=== PATIENT | male | born 1970 | race Two or more races ===

== ENCOUNTER 2017-08-02 09:24 | Inpatient (IN) | payer BC ==
[~2017-08-02] VITALS: Ht 167.6 cm; Wt 106.6 kg
[2017-08-02] VITALS (13 sets, daily range): BP systolic 119–148; BP diastolic 63–74
[2017-08-02] MEDS ORDERED: NKM (09:41)
[2017-08-02] MEDS ORDERED: Ketorolac 30mg Inj IV ONE (10:30)
[2017-08-02 10:46] LABS: BASOPHILS % (AUTO) 0.5 % (0.0-2.0); EOSINOPHILS % (AUTO) 0.1 % (0.0-3.0); HEMATOCRIT 43.2 % (42.0-52.0); HEMOGLOBIN 15.1 G/DL (14.2-18.0); LYMPHOCYTES % (AUTO) 14.2 % (20.0-45.0); MEAN CORPUSCULAR VOLUME 82 FL (80-99); MONOCYTES % (AUTO) 7.5 % (1.0-10.0); NEUTROPHILS % (AUTO) 77.8 % (45.0-75.0); PLATELET COUNT 203 K/UL (150-450); RED BLOOD COUNT 5.24 M/UL (4.70-6.10); RED CELL DISTRIBUTION WIDTH 11.3 % (11.6-14.8); WHITE BLOOD COUNT 14.3 K/UL (4.8-10.8)
[2017-08-02 10:59] LABS: APPEARANCE,URINE CLEAR; BILIRUBIN, URINE NEGATIVE (NEGATIVE); GLUCOSE, URINE (UA) NEGATIVE (NEGATIVE); KETONES,URINE NEGATIVE (NEGATIVE); LEUKOCYTE ESTERASE ,URINE 1+ (NEGATIVE); NITRITE,URINE NEGATIVE (NEGATIVE); PH,URINE 6 (4.5-8.0); PROTEIN,URINE 2+ (NEGATIVE); UROBILINOGEN,URINE NORMAL MG/DL (0.0-1.0)
[2017-08-02 11:05] LABS: ANION GAP 6 mmol/L (5-15); BLOOD UREA NITROGEN 15 mg/dL (7-18); CALCIUM 9.3 MG/DL (8.5-10.1); CARBON DIOXIDE 30 MMOL/L (21-32); CHLORIDE 103 MMOL/L (98-107); POTASSIUM 3.5 MMOL/L (3.5-5.1); SODIUM 139 MMOL/L (136-145)
[2017-08-02 11:07] LABS: COLOR,URINE YELLOW
[2017-08-02 11:08] LABS: ALANINE AMINOTRANSFERASE 30 U/L (12-78); ALBUMIN 4.1 G/DL (3.4-5.0); ALBUMIN/GLOBULIN RATIO 1.1 (1.0-2.7); ALKALINE PHOSPHATASE 77 U/L (46-116); ASPARTATE AMINO TRANSFERASE 19 U/L (15-37); BILIRUBIN,TOTAL 0.8 MG/DL (0.2-1.0)
--- NOTE | 2017-08-02 11:51 | Diagnostic Imaging Report ---
Indication: Right lower quadrant abdominal pain Technique: CT of the abdomen and pelvis utilizing automated exposure control with intravenous contrast. Venous scanning performed. CT dose: Total DLP 958.13 mGycm; CTDI vol 17.05 mGy Comparison: None Findings: Dependent atelectasis noted in the lung bases. Heart size within upper limits for normal size. There is no pericardial effusion. There are normal in size and contour. No focal liver lesion appreciated on this single phase study. Hepatic veins and portal veins are patent. Gallbladder unremarkable in appearance. No biliary ductal dilatation. Spleen normal in size. Accessory splenule is incidentally noted. Adrenal glands and pancreas unremarkable in appearance. Kidneys enhance symmetrically. No urinary tract stones or hydronephrosis bilaterally. Bladder unremarkable in appearance. Prostate normal in size. There is abnormal distention of portions of the appendix to 1.8 cm in diameter with wall thickening/enhancement and surrounding inflammatory change in the right lower quadrant compatible with an acute appendicitis (series 3 image #75). Air is noted within the tip of the appendix. The base of the appendix is more normal in caliber. There is no evidence of associated bowel obstruction, abscess formation or free intraperitoneal air to suggest perforation at this time. There is colonic diverticulosis without evidence of acute diverticulitis. Abdominal aorta is normal in caliber. Small mesenteric lymph nodes are noted, likely reactive in etiology. No pathologically enlarged lymphadenopathy. There is a tiny fat-containing right inguinal hernia. Very mild degenerative changes in the lower lumbar spine. No acute osseous abnormality is seen. IMPRESSION: Findings compatible with an acute appendicitis. No evidence of associated bowel obstruction, perforation or abscess formation at this time. Diverticulosis without evidence of acute diverticulitis. The CT scanner at [facility] is accredited by the [employer] and the scans are performed using protocols designed to limit radiation exposure to as low as reasonably achievable to attain images of sufficient resolution adequate for diagnostic evaluation.
--- NOTE | 2017-08-02 12:09 | Emergency Room Report ---
History of Present Illness General Chief Complaint: Abdominal Pain Source: Patient Present Illness HPI 47YOM walked in to ER with epigastric pain initially with vomiting now located to RLQ Denies current nausea/vomiting, diarrhea, fever/chills No previous Abd/pelvic surgery Had episode of chills last week Denies other medical problems Denies history of gallstones, history of RUQ pain worsened with eating Allergies: Coded Allergies: No Known Allergies (Unverified , 08/02/17) Patient History Past Medical History: none Past Surgical History: none Pertinent Family History: none Social History: Denies: smoking, alcohol use, drug use Immunizations: UTD Reviewed Nursing Documentation: PMH: Agreed, PSxH: Agreed Nursing Documentation-PMH Past Medical History: No History, Except For Review of Systems All Other Systems: negative except mentioned in HPI Physical Exam Vital Signs Date Time Temp Pulse Resp B/P (MAP) Pulse Ox O2 Delivery O2 Flow Rate FiO2 08/02/17 09:36 98.1 71 18 145/79 96 Room Air Sp02 EP Interpretation: reviewed, normal General Appearance: normal inspection, well appearing, no apparent distress, alert, GCS 15, non-toxic Head: normocephalic, atraumatic Eyes: bilateral eye PERRL, bilateral eye EOMI ENT: normal ENT inspection, hearing grossly normal, normal pharynx, no angioedema, normal voice, TMs + canals normal, uvula midline, moist mucus membranes Neck: normal inspection, full range of motion, supple, thyroid normal, no meningismus, no bony tend Respiratory: normal inspection, lungs clear, normal breath sounds, no rhonchi, no respiratory distress, no retraction, no accessory muscle use, no wheezing, speaking full sentences Cardiovascular #1: regular rate, rhythm, no edema, no JVD, normal capillary refill Gastrointestinal: normal inspection, normal bowel sounds, soft, no mass, no peritonitis, non-distended, no guarding, no hernia, no pulsatile mass, other - RLQ ttp. Mild guarding. No peritonitis Genitourinary: no CVA tenderness Musculoskeletal: normal inspection, back normal, normal range of motion, no calf tenderness, pelvis stable, Marga's Sign negative Neurologic: normal inspection, alert, oriented x3, responsive, ribbon blockmaker III-XII nml as tested, motor strength/tone normal, cerebellar normal, normal gait, speech normal Psychiatric: normal inspection, judgement/insight normal, mood/affect normal, no suicidal/homicidal ideation, no delusions Skin: normal inspection, normal color, no rash Lymphatic: normal inspection, no adenopathy Medical Decision Making Diagnostic Impression: Primary Impression: Abdominal pain Qualified Codes: R10.31 - Right lower quadrant pain Additional Impression: Appendicitis Qualified Codes: K35.80 - Unspecified acute appendicitis ER Course 47YOM with acute appy Mild leuks on lab Lactate WNL CT cw appy Endorsed to Dr Gardiner, will go to OR Endorsed to Dr Rodriguez as PMD at 1234pm Rhythm Strip Diag. Results EP Interpretation: yes Rate: 76 Rhythm: NSR, no PVC's, no ectopy Last Vital Signs Date Time Temp Pulse Resp B/P (MAP) Pulse Ox O2 Delivery O2 Flow Rate FiO2 08/02/17 10:59 98.1 08/02/17 09:43 62 15 127/73 97 Room Air Status: improved Disposition: ADMITTED INPATIENT Condition: Serious Referrals: JACEK RODRIGUEZ (PCP) FERNANDO HERNANDEZ M.D. Aug 02, 2017 12:09
[2017-08-02] MEDS ORDERED: Piperacillin/Tazobactam 3.375 GM in NS 110 ML IVPB ONE (12:15)
[2017-08-02] MEDS ORDERED: Zosyn 3.375gm inj ONE (12:35)
--- NOTE | 2017-08-02 12:42 | Consultation ---
History of Present Illness General Date patient seen: Aug 02, 2017 Chief Complaint: Abdominal Pain Reason for Consultation: acute appendicitis Present Illness HPI 47 year old otherwise healthy male presented to ED with complaints of worsening abdominal pain with associated nausea and emesis. As per patient, he was in his normal state of health until 10AM yesterday morning when he noted some mid abdominal discomfort. As day progressed pain worsened and became localized to RLQ. Pain associated with nausea and 4x non bloody emesis. Has not had appetite. No BM since. No prior symptoms. Allergies: Coded Allergies: No Known Allergies (Unverified , 08/02/17) Medication History Scheduled No Known Medications* (NKM - No Known Medications*), 0 ., (Reported) Patient History History Provided By: Patient Healthcare decision maker Resuscitation status Advanced Directive on File Past Medical/Surgical History Past Medical/Surgical History: (1) Appendicitis (2) Abdominal pain Review of Systems Constitutional: Denies: no symptoms, see HPI, chills, sweats, fever, malaise, weakness, other Eye: Denies: no symptoms, see HPI, eye pain, blurred vision, tearing, double vision, nose pain, nose congestion, acuity changes, discharge, other ENT: Denies: no symptoms, see HPI, ear pain, ear discharge, nose pain, nose congestion, throat pain, throat swelling, mouth pain, hearing loss, nasal discharge, other Respiratory: Denies: no symptoms, see HPI, cough, orthopnea, shortness of breath, stridor, wheezing, SANCHEZ, sputum, other Cardiovascular: Denies: no symptoms, see HPI, chest pain, edema, palpitations, syncope, PND, other Gastrointestinal: Reports: abdominal pain, nausea, vomiting Genitourinary: Denies: no symptoms, see HPI, discharge, dysuria, frequency, hematuria, pain, retention, incontinence, urgency, vag bleed/dc, other Musculoskeletal: Denies: no symptoms, see HPI, back pain, gout, joint pain, joint swelling, muscle pain, muscle stiffness, other Skin: Denies: no symptoms, see HPI, rash, change in color, change in hair/nails , dryness, lesions, other Psychiatric: Denies: no symptoms, see HPI, prior hx, anxiety, depressed feelings, emotional problems, SI, HI, hallucinations, other Neurological: Denies: no symptoms, see HPI, headache, numbness, paresthesia, seizure, tingling, tremors, focal weakness, syncope, dizziness, other Endocrine: Denies: no symptoms, see HPI, excessive sweating, flushing, intolerance to temperature, increased thirst, increased urine, unexplained weight loss, other Hematologic/Lymphatic: Denies: no symptoms, see HPI, anemia, blood clots, easy bleeding, easy bruising, swollen glands, diathesis, other Physical Exam General Appearance: no apparent distress, alert Lines, tubes and drains: peripheral HEENT: normocephalic, atraumatic Neck: normal alignment, supple Respiratory/Chest: normal breath sounds, no respiratory distress, no accessory muscle use Cardiovascular/Chest: normal peripheral pulses, normal rate, regular rhythm Abdomen: soft, no organomegaly, no mass, guarding, rebound, tender, other - RLQ focal peritonitis with rebound and guarding Extremities: normal range of motion, non-tender, normal inspection Skin Exam: normal pigmentation Neurologic: alert, oriented x 3, responsive Last 24 Hour Vital Signs Date Time Temp Pulse Resp B/P (MAP) Pulse Ox O2 Delivery O2 Flow Rate FiO2 08/02/17 10:59 98.1 08/02/17 09:43 98.1 62 15 127/73 97 Room Air 08/02/17 09:36 98.1 71 18 145/79 96 Room Air Laboratory Tests Test 08/02/17 10:20 08/02/17 10:22 08/02/17 10:30 Lactic Acid Level 1.10 mmol/L (0.66-2.22) White Blood Count 14.3 K/UL (4.8-10.8) H Red Blood Count 5.24 M/UL (4.70-6.10) Hemoglobin 15.1 G/DL (14.2-18.0) Hematocrit 43.2 % (42.0-52.0) Mean Corpuscular Volume 82 FL (80-99) Mean Corpuscular Hemoglobin 28.9 PG (27.0-31.0) Mean Corpuscular Hemoglobin Concent 35.0 G/DL (32.0-36.0) Red Cell Distribution Width 11.3 % (11.6-14.8) L Platelet Count 203 K/UL (150-450) Mean Platelet Volume 8.7 FL (6.5-10.1) Neutrophils (%) (Auto) 77.8 % (45.0-75.0) H Lymphocytes (%) (Auto) 14.2 % (20.0-45.0) L Monocytes (%) (Auto) 7.5 % (1.0-10.0) Eosinophils (%) (Auto) 0.1 % (0.0-3.0) Basophils (%) (Auto) 0.5 % (0.0-2.0) Prothrombin Time 10.7 SEC (9.30-11.50) Prothromb Time International Ratio 1.0 (0.9-1.1) Sodium Level 139 MMOL/L (136-145) Potassium Level 3.5 MMOL/L (3.5-5.1) Chloride Level 103 MMOL/L (98-107) Carbon Dioxide Level 30 MMOL/L (21-32) Anion Gap 6 mmol/L (5-15) Blood Urea Nitrogen 15 mg/dL (7-18) Creatinine 1.0 MG/DL (0.55-1.30) Estimat Glomerular Filtration Rate > 60 mL/min (>60) Glucose Level 121 MG/DL (74-106) H Calcium Level 9.3 MG/DL (8.5-10.1) Total Bilirubin 0.8 MG/DL (0.2-1.0) Aspartate Amino Transf (AST/SGOT) 19 U/L (15-37) Alanine Aminotransferase (ALT/SGPT) 30 U/L (12-78) Alkaline Phosphatase 77 U/L (46-116) Total Protein 7.9 G/DL (6.4-8.2) Albumin 4.1 G/DL (3.4-5.0) Globulin 3.8 g/dL Albumin/Globulin Ratio 1.1 (1.0-2.7) Lipase 138 U/L (73-393) Urine Color Yellow Urine Appearance Clear Urine pH 6 (4.5-8.0) Urine Specific Mode 1.020 (1.005-1.035) Urine Protein 2+ (NEGATIVE) H Urine Glucose (UA) Negative (NEGATIVE) Urine Ketones Negative (NEGATIVE) Urine Occult Blood 3+ (NEGATIVE) H Urine Nitrite Negative (NEGATIVE) Urine Bilirubin Negative (NEGATIVE) Urine Urobilinogen Normal MG/DL (0.0-1.0) Urine Leukocyte Esterase 1+ (NEGATIVE) H Urine RBC 5-10 /HPF (0 - 0) H Urine WBC 2-4 /HPF (0 - 0) Urine Squamous Epithelial Cells Occasional /LPF Urine Bacteria Occasional /HPF (NONE) Urine Mucus Moderate /LPF (NONE/OCC) H Height (Feet): 5 Height (Inches): 6.00 Weight (Pounds): 235 Medications Current Medications Medications (Trade) Dose Ordered Sig/Jorge Route PRN Reason Start Time Stop Time Status Last Admin Dose Admin Piperacillin Sod/ Tazobactam Sod 3.375 gm/Sodium Chloride 110 ml @ 220 mls/hr ONCE ONCE IVPB 08/02/17 12:15 08/02/17 12:44 08/02/17 12:37 Assessment/Plan Problem List: (1) Appendicitis Assessment & Plan: 47 year old male with acute appendicitis. Afebrile, HD stable, leukocytosis of 14k, exam with focal RLQ peritonitis, CT consistent with acute appy. -To OR for lap vs open appy -NPO -IV fluids -IV Abx -Consent ICD Codes: K37 - Unspecified appendicitis SNOMED: [id number] Qualifiers: Qualified Codes: K35.80 - Unspecified acute appendicitis Status: stable PhilGigi Aug 02, 2017 12:42
--- NOTE | 2017-08-02 12:43 | Pre-Procedure Note/Attestation ---
Pre-Procedure Note/Attestation Complete Prior to Procedure Planned Procedure: not applicable Procedure Narrative: laparoscopic possible open appendectomy Indications for Procedure Pre-Operative Diagnosis: acute appendicitis Attestation I attest that I discussed the nature of the procedure; its benefits; risks and complications; and alternatives (and the risks and benefits of such alternatives ), prior to the procedure, with the patient (or the patient's legal major account representative). I attest that, if there was a reasonable possibility of needing a blood transfusion, the patient (or the patient's legal major account representative) was given the [facility] standardized written summary, pursuant to the [place] Blood Safety Act ([place] Health and Safety Code # 1645, as amended). I attest that I re-evaluated the patient just prior to the surgery and that there has been no change in the patient's H&P, except as documented below: Gigi Villarreal Aug 02, 2017 12:43
[2017-08-02] MEDS ORDERED: LR 1000ml ONE (13:00)
[2017-08-02] MEDS ORDERED: Propofol 200mg/20ml IV ONE (13:00)
[2017-08-02] MEDS ORDERED: Glycopyrrolate 0.2mg/ml 1ml Vial ONE (13:00)
[2017-08-02] MEDS ORDERED: fentaNYL 100 mcg/2 mL IV ONE (13:00)
[2017-08-02] MEDS ORDERED: Neostigmine 1mg/ml 10ml Inj ONE (13:00)
[2017-08-02] MEDS ORDERED: Midazolam 2mg/2ml Inj ONE (13:00)
[2017-08-02] MEDS ORDERED: Succinylcholine 20mg/ml 10ml vial ONE (13:00)
[2017-08-02] MEDS ORDERED: Zemuron 50mg/5ml Inj IV ONE (13:00)
[2017-08-02] MEDS ORDERED: Lidocaine 1% MPF 10mg/ml 5ml ONE (13:00)
[2017-08-02] MEDS ORDERED: Lidocaine 1% 10mg/ml/EPI 0.01mg/ml 50ml INJ ONE (13:11)
[2017-08-02] MEDS ORDERED: LR 1000ml 1,000 ML IVLG SCH (13:53)
--- NOTE | 2017-08-02 13:53 | Anethesia Preoperative Eval ---
Anesthesia Pre-op PMH/ROS General Date of Evaluation: Aug 02, 2017 Time of Evaluation: 13:02 Anesthesiologist: César ASA Score: ASA 2 Mallampati Score Class I : Soft palate, uvula, fauces, pillars visible Class II: Soft palate, uvula, fauces visible Class III: Soft palate, base of uvula visible Class IV: Only hard plate visible Mallampati Classification: Class II Surgeon: Micheline Diagnosis: Acute appendicitis Surgical Procedure: Laparoscopic appendectomy Anesthesia History: none Family History: no anesthesia problems Allergies: Coded Allergies: No Known Allergies (Unverified , 08/02/17) Medications: see eMAR Past Medical History Cardiovascular: Denies: HTN, CAD, CO, valve dz, arrhythmia, other Pulmonary: Denies: asthma, COPD, JESSICA, other Gastrointestinal/Genitourinary: Reports: GERD - mild, Denies: CRI, ESRD, other Neurologic/Psychiatric: Denies: dementia, CVA, depression/anxiety, TIA, other Endocrine: Denies: DM, hypothyroidism, steroids, other HEENT: Denies: cataract (L), cataract (R), glaucoma, GRAYLING (L), GRAYLING (R), other Hematology/Immune: Denies: anemia, DVT, bleeding disorder, other Musculoskeletal/Integumentary: Denies: OA, RA, DJD, DDD, edema, other Other: other - overweight PMH Narrative: as above Acutely ill, admitted for abdominal pain nausea and vomiting. PSxH Narrative: Shoulder Sx Anesthesia Pre-op Phys. Exam Physician Exam Last Vital Signs Date Time Temp Pulse Resp B/P (MAP) Pulse Ox O2 Delivery O2 Flow Rate FiO2 08/02/17 12:48 98.1 65 14 148/63 97 Room Air Constitutional: NAD Neurologic: CN 2-12 intact Cardiovascular: RRR, no M/R/G Respiratory: CTA Gastrointestinal: S/NT/ND Airway Exam Mallampati Score: Class II MO: full Neck: Short ROM: full Teeth: intact Dentures: no upper, no lower Anesthesia Pre-op A/P Labs Hematology Test 08/02/17 10:22 White Blood Count 14.3 K/UL (4.8-10.8) H Red Blood Count 5.24 M/UL (4.70-6.10) Hemoglobin 15.1 G/DL (14.2-18.0) Hematocrit 43.2 % (42.0-52.0) Mean Corpuscular Volume 82 FL (80-99) Mean Corpuscular Hemoglobin 28.9 PG (27.0-31.0) Mean Corpuscular Hemoglobin Concent 35.0 G/DL (32.0-36.0) Red Cell Distribution Width 11.3 % (11.6-14.8) L Platelet Count 203 K/UL (150-450) Mean Platelet Volume 8.7 FL (6.5-10.1) Neutrophils (%) (Auto) 77.8 % (45.0-75.0) H Lymphocytes (%) (Auto) 14.2 % (20.0-45.0) L Monocytes (%) (Auto) 7.5 % (1.0-10.0) Eosinophils (%) (Auto) 0.1 % (0.0-3.0) Basophils (%) (Auto) 0.5 % (0.0-2.0) Coagulation Test 08/02/17 10:22 Prothrombin Time 10.7 SEC (9.30-11.50) Prothromb Time International Ratio 1.0 (0.9-1.1) Chemistry Test 08/02/17 10:20 08/02/17 10:22 Lactic Acid Level 1.10 mmol/L (0.66-2.22) Sodium Level 139 MMOL/L (136-145) Potassium Level 3.5 MMOL/L (3.5-5.1) Chloride Level 103 MMOL/L (98-107) Carbon Dioxide Level 30 MMOL/L (21-32) Anion Gap 6 mmol/L (5-15) Blood Urea Nitrogen 15 mg/dL (7-18) Creatinine 1.0 MG/DL (0.55-1.30) Estimat Glomerular Filtration Rate > 60 mL/min (>60) Glucose Level 121 MG/DL (74-106) H Calcium Level 9.3 MG/DL (8.5-10.1) Total Bilirubin 0.8 MG/DL (0.2-1.0) Aspartate Amino Transf (AST/SGOT) 19 U/L (15-37) Alanine Aminotransferase (ALT/SGPT) 30 U/L (12-78) Alkaline Phosphatase 77 U/L (46-116) Total Protein 7.9 G/DL (6.4-8.2) Albumin 4.1 G/DL (3.4-5.0) Globulin 3.8 g/dL Albumin/Globulin Ratio 1.1 (1.0-2.7) Lipase 138 U/L (73-393) Risk Assessment & Plan Assessment: ASA 2 Plan: GA with ETT Status Change Before Surgery: No Pre-Antibiotics Drug: as scheduled ANTOINETTE MIJARES M.D. Aug 02, 2017 13:53
[2017-08-02] MEDS ORDERED: Ketorolac 30mg Inj IV PRN ×2 (14:00→14:45)
[2017-08-02] MEDS ORDERED: Meperidine 50mg/ml Inj(FOR RIGORS ONLY) IV PRN (14:00)
[2017-08-02] MEDS ORDERED: Hydromorphone 0.5mg/0.5ml inj IVP PRN ×2 (14:00→14:45)
[2017-08-02] MEDS ORDERED: DiphenhydrAMINE 50mg/ml Inj IVP PRN ×2 (14:00→14:45)
--- NOTE | 2017-08-02 14:33 | Brief Operative Note ---
Immediate Post Operative Note Operative Note Pre-op Diagnosis: acute appendicitis Procedure: lap appy Post-op Diagnosis: same as pre-op Surgeon: diana Anesthesiologist: thi Anesthesia: general Specimen: yes Complications: none Condition: stable Fluids: see records Estimated Blood Loss: minimal Drains: none Implant(s) used?: No Gigi Villarreal Aug 02, 2017 14:32
--- NOTE | 2017-08-02 14:39 | Immediate Post-Op Evaluation ---
Immediate Post-Op Evalulation Immediate Post-Op Evalulation Procedure: Laparoscopic appendectomy Date of Evaluation: Aug 02, 2017 Time of Evaluation: 14:38 IV Fluids: 1200 Blood Products: none Estimated Blood Loss: min Urinary Output: none Blood Pressure Systolic: 134 Blood Pressure Diastolic: 76 Pulse Rate: 86 Respiratory Rate: 22 O2 Sat by Pulse Oximetry: 99 Temperature (Fahrenheit): 98.3 Pain Score (1-10): 2 Nausea: No Vomiting: No Complications none Patient Status: reacts, patent, extubated, none Hydration Status: adequate ANTOINETTE MIJARES M.D. Aug 02, 2017 14:39
[2017-08-02] MEDS ORDERED: Norco 5mg/325mg tab ORAL PRN (14:45)
[2017-08-02] MEDS ORDERED: HYDROcodone/Acetamin 10/325 tab ORAL PRN (14:45)
[2017-08-02] MEDS ORDERED: Milk of Magnesia 30ml Ud ORAL PRN (14:45)
[2017-08-02] MEDS: Docusate 100mg cap ORAL SCH (18:24)
[2017-08-02] MEDS: D5 1/2NS w/KCl 20mEq 1,000 ML IV SCH (18:24)
[2017-08-02] MEDS: cefOXitin Sod 2 GM in NS 110 ML IV SCH (18:24)
[2017-08-02] MEDS: HYDROmorphone 1mg/ml Carpuject IVP PRN ×2 (21:02→21:03)
[2017-08-03] MEDS: cefOXitin Sod 2 GM in NS 110 ML IV SCH ×2 (01:26→05:57)
[2017-08-03 04:00] VITALS: BP 124/70
[2017-08-03] MEDS: D5 1/2NS w/KCl 20mEq 1,000 ML IV SCH ×2 (06:28→10:57)
[2017-08-03 08:52] LABS: BASOPHILS % (AUTO) 0.7 % (0.0-2.0); EOSINOPHILS % (AUTO) 0.2 % (0.0-3.0); HEMATOCRIT 41.9 % (42.0-52.0); HEMOGLOBIN 14.3 G/DL (14.2-18.0); LYMPHOCYTES % (AUTO) 26.6 % (20.0-45.0); MEAN CORPUSCULAR VOLUME 84 FL (80-99); MONOCYTES % (AUTO) 9.1 % (1.0-10.0); NEUTROPHILS % (AUTO) 63.4 % (45.0-75.0); PLATELET COUNT 182 K/UL (150-450); RED BLOOD COUNT 5.01 M/UL (4.70-6.10); RED CELL DISTRIBUTION WIDTH 11.8 % (11.6-14.8); WHITE BLOOD COUNT 8.8 K/UL (4.8-10.8)
[2017-08-03] MEDS: Docusate 100mg cap ORAL SCH (08:55)
[2017-08-03 08:57] LABS: ANION GAP 7 mmol/L (5-15); BLOOD UREA NITROGEN 12 mg/dL (7-18); CALCIUM 8.4 MG/DL (8.5-10.1); CARBON DIOXIDE 28 MMOL/L (21-32); CHLORIDE 106 MMOL/L (98-107); POTASSIUM 3.7 MMOL/L (3.5-5.1); SODIUM 141 MMOL/L (136-145)
--- NOTE | 2017-08-03 09:16 | 48 Hour Post Anesthesia Eval ---
Post Anesthesia Evaluation Procedure: Laparoscopic appendectomy Date of Evaluation: Aug 03, 2017 Time of Evaluation: 09:15 Blood Pressure Systolic: 124 0: 76 Pulse Rate: 72 Respiratory Rate: 20 Temperature (Fahrenheit): 97.6 O2 Sat by Pulse Oximetry: 99 Airway: patent Nausea: No Vomiting: No Pain Intensity: 3 Hydration Status: adequate Cardiopulmonary Status: stable Mental Status/LOC: patient returned to baseline Follow-up Care/Observations: n/a Post-Anesthesia Complications: none Follow-up care needed: ready to discharge ANTOINETTE MIJARES M.D. Aug 03, 2017 09:15
[2017-08-03 09:41] VITALS: BP 127/62
--- NOTE | 2017-08-03 12:19 | General Progress Note ---
Progress Note Progress Note POD #1 s/p lap appy. doing great. pain resolved. only incisional pain now. no n/v/f/c tolerating diet. ambulatory. passing flatus. abd soft, nt,nd, bs+, incisions c/d/i -diet as tolerated -activity okay (no lifting >10lbs for 4 weeks) -Rx tylenol #3 and colace -follow u pin 1-2 weeks. office info give -okay to d/c home today Gigi Villarreal Aug 03, 2017 12:19
--- NOTE | 2017-08-03 12:50 | Consultation ---
History of Present Illness General Date patient seen: Aug 03, 2017 Time patient seen: 12:00 Chief Complaint: Abdominal Pain Referring physician: Dr. Villarreal Reason for Consultation: medical management Present Illness HPI 47yo male with no sig pmh who presented with worsening abdominal pain with associated nausea and emesis. As per patient, he was in his normal state of health until 10AM yesterday morning when he noted some mid abdominal discomfort. As day progressed pain worsened and became localized to RLQ. Pain associated with nausea and 4x non bloody emesis. Has not had appetite. No BM since. No prior symptoms. Pt was found to have acute appendicitis. He was seen by surgery and underwent laparoscopic appendectomy on 08/02/17. Pt tolerated procedure well. He states pain is controlled. Denies f/c, n/v, d/c, chest pain, SOB. Tolerating PO. Passing gas. Allergies: Coded Allergies: No Known Allergies (Unverified , 08/02/17) Medication History Scheduled No Known Medications* (NKM - No Known Medications*), 0 ., (Reported) Patient History History Provided By: Patient, Medical Record Healthcare decision maker Resuscitation status Full Code Advanced Directive on File Past Medical/Surgical History Past Medical/Surgical History: (1) No significant past medical history (2) No significant past surgical history Family History Family History: (1) No significant family history Social History Social History: (1) No significant social history Review of Systems Constitutional: Reports: no symptoms Eye: Reports: no symptoms ENT: Reports: no symptoms Respiratory: Reports: no symptoms Cardiovascular: Reports: no symptoms Gastrointestinal: Reports: no symptoms, abdominal pain, nausea, vomiting Genitourinary: Reports: no symptoms Musculoskeletal: Reports: no symptoms Skin: Reports: no symptoms Psychiatric: Reports: no symptoms Neurological: Reports: no symptoms Endocrine: Reports: no symptoms Physical Exam Physical Exam Narrative General: alert, cooperative, no distress, appears stated age Head: normocephalic, without obvious abnormality, atraumatic Eyes: conjunctivae/corneas clear. PERRL, EOM's intact Throat: lips, mucosa, and tongue normal. MMM Neck: supple, symmetrical, trachea midline, and no JVD Lungs: clear to auscultation bilaterally Heart: regular rate and rhythm, S1, S2 normal, no murmur, click, rub or gallop Abdomen: soft, appropriately TTP, incisions c/d/i, non-distended, bowel sounds normal; no masses or organomegaly Extremities: extremities normal, atraumatic, no cyanosis or edema Pulses: 2+ and symmetric Skin: skin color, texture, turgor normal; no rashes or lesions Neurologic: grossly normal, no focal deficits Last 24 Hour Vital Signs Date Time Temp Pulse Resp B/P (MAP) Pulse Ox O2 Delivery O2 Flow Rate FiO2 08/03/17 09:41 98.4 61 18 127/62 97 08/03/17 09:15 72 20 99 08/03/17 04:00 99.1 73 18 124/70 96 08/02/17 21:00 99.1 74 18 125/64 100 08/02/17 17:00 98.5 88 19 127/72 98 08/02/17 16:30 98.7 74 18 140/68 97 08/02/17 16:00 97.9 84 19 128/64 97 08/02/17 15:30 97.9 67 19 119/74 98 08/02/17 15:15 98.4 74 18 126/65 100 Nasal Cannula 3.0 08/02/17 15:00 76 15 139/68 100 Nasal Cannula 3.0 08/02/17 14:50 74 16 146/71 100 Nasal Cannula 3.0 08/02/17 14:39 96 23 148/69 100 Simple Mask 6.0 08/02/17 14:39 86 22 99 08/02/17 14:34 91 18 135/69 100 Simple Mask 6.0 08/02/17 14:29 98.2 87 22 140/70 100 Simple Mask 6.0 Intake and Output 08/02/17 08/03/17 19:00 07:00 Intake Total 1850 ml 480 ml Output Total 715 ml 600 ml Balance 1135 ml -120 ml Intake Oral 240 ml 480 ml IV Total 1610 ml Output Urine Total 700 ml 600 ml Estimated Blood Loss 15 ml # Voids 2 Laboratory Tests Test 08/03/17 07:10 White Blood Count 8.8 K/UL (4.8-10.8) Red Blood Count 5.01 M/UL (4.70-6.10) Hemoglobin 14.3 G/DL (14.2-18.0) Hematocrit 41.9 % (42.0-52.0) L Mean Corpuscular Volume 84 FL (80-99) Mean Corpuscular Hemoglobin 28.5 PG (27.0-31.0) Mean Corpuscular Hemoglobin Concent 34.0 G/DL (32.0-36.0) Red Cell Distribution Width 11.8 % (11.6-14.8) Platelet Count 182 K/UL (150-450) Mean Platelet Volume 9.3 FL (6.5-10.1) Neutrophils (%) (Auto) 63.4 % (45.0-75.0) Lymphocytes (%) (Auto) 26.6 % (20.0-45.0) Monocytes (%) (Auto) 9.1 % (1.0-10.0) Eosinophils (%) (Auto) 0.2 % (0.0-3.0) Basophils (%) (Auto) 0.7 % (0.0-2.0) Sodium Level 141 MMOL/L (136-145) Potassium Level 3.7 MMOL/L (3.5-5.1) Chloride Level 106 MMOL/L (98-107) Carbon Dioxide Level 28 MMOL/L (21-32) Anion Gap 7 mmol/L (5-15) Blood Urea Nitrogen 12 mg/dL (7-18) Creatinine 1.0 MG/DL (0.55-1.30) Estimat Glomerular Filtration Rate > 60 mL/min (>60) Glucose Level 103 MG/DL (74-106) Calcium Level 8.4 MG/DL (8.5-10.1) L Height (Feet): 5 Height (Inches): 6.00 Weight (Pounds): 235 Medications Current Medications Medications (Trade) Dose Ordered Sig/Jorge Route PRN Reason Start Time Stop Time Status Last Admin Dose Admin Acetaminophen (Tylenol) 650 mg Q6H PRN ORAL Mild Pain (Pain Scale 1-3) 08/02/17 14:45 09/01/17 14:44 Acetaminophen/ Hydrocodone Bitart (Grabill 10/325) 1 tab Q4H PRN ORAL Severe Pain (Pain Scale 7-10) 08/02/17 14:45 08/09/17 14:44 08/03/17 01:29 Acetaminophen/ Hydrocodone Bitart (Grabill 5/325) 1 tab Q4H PRN ORAL Moderate Pain (Pain Scale 4-6) 08/02/17 14:45 08/09/17 14:44 Dextrose/ Electrolytes 1,000 ml @ 75 mls/hr [id number] IV 08/02/17 17:00 09/01/17 16:59 08/03/17 10:57 Diphenhydramine HCl (Benadryl) 12.5 mg Q6H PRN IVP Itching/Pruritis 08/02/17 14:45 09/01/17 14:44 Docusate Sodium (Colace) 100 mg TWICE A DAY ORAL 08/02/17 18:00 09/01/17 17:59 08/03/17 08:55 Hydromorphone HCl (Dilaudid) 0.5 mg Q3H PRN IVP Pain Score 1-3 08/02/17 14:45 08/09/17 14:44 Hydromorphone HCl (Dilaudid) 1 mg Q3H PRN IVP pain score 4-6 08/02/17 14:45 08/09/17 14:44 08/02/17 21:03 Hydromorphone HCl (Dilaudid) 2 mg Q3H PRN IVP pain score 7-10 08/02/17 14:45 08/09/17 14:44 Ketorolac Tromethamine (Toradol 30mg) 15 mg Q6H PRN IV Breakthrough Pain 08/02/17 14:45 08/07/17 14:44 Magnesium Hydroxide (Mom) 30 ml BIDPRN PRN ORAL Constipation 08/02/17 14:45 09/01/17 14:44 Ondansetron HCl (Zofran) 4 mg Q6H PRN IVP Nausea & Vomiting 08/02/17 14:45 09/01/17 14:44 Assessment/Plan Problem List: (1) Acute appendicitis ICD Codes: K35.80 - Unspecified acute appendicitis SNOMED: 02752706 Status: stable Assessment/Plan Appreciate surgery rec's s/p laparscopic appendectomy on 08/02/17 Post operative recommendations include: - encourage mobilization/ambulation - encourage incentive spirometry to optimize pulmonary hygiene - DVT/GI prophylaxis as appropriate - ctm CBC and hemodynamics - ctm electrolytes, adjust/replete prn - pain control, supportive care, bowel regimen DC planning for today FULL CODE D/w pt/family, RN, surgery, SW/CM regarding mgmt and dispo Christiane Valenzuela M.D. Aug 03, 2017 12:50
--- NOTE | 2017-08-03 12:55 | Operative Note - Dictated ---
DATE OF OPERATION: 08/02/2017 POSTOPERATIVE DIAGNOSIS: Acute appendicitis. POSTOPERATIVE DIAGNOSIS: Acute appendicitis. OPERATION PERFORMED: Laparoscopic appendectomy. ATTENDING SURGEON: Gigi Villarreal M.D. BASKET WEAVER: None. ANESTHESIOLOGIST: Mario Lindsey M.D. ANESTHESIA: General TEXTILE MACHINE MECHANIC. ESTIMATED BLOOD LOSS: Minimal. IV FLUIDS: Please see anesthesia records. COMPLICATIONS: None. SPECIMENS: Appendix sent to pathology for review. DRAINS: None. WOUND CLASSIFICATION: Class 3. ANTIBIOTICS: The patient was given IV Zosyn scheduled for acute active inflammatory process. SPONGE AND NEEDLE COUNT: Correct x2. COMPLICATIONS: None. INDICATIONS FOR PROCEDURE: This is a 47-year-old male, who presented to the emergency department with complaints of worsening abdominal pain. The patient states that yesterday in the morning, he began having generalized abdominal pain, which has since localized to right lower quadrant. The patient states the pain was associated with nausea and emesis and his pain worsened, so had to come to emergency department for evaluation. In the ED, he was found to have focal right lower quadrant abdominal tenderness, leukocytosis 14,000, and CT scan findings consistent with acute appendicitis. Risks, benefits, and alternatives were discussed with the patient in detail and the patient consented to laparoscopic appendectomy, which was performed today. Surgery was indicated and recommended. OPERATIVE NOTE: The patient was taken to the operating room, placed on operating table in supine position with bilateral arms out. SCDs were placed. All bony prominences were well padded. No Taylor catheter was inserted given the patient voided just prior to entering operating room. The patient was already on scheduled IV Zosyn for acute active inflammatory process. Preoperative time-out was taken identifying the patient, procedure, operative staff, and surgical staff. General anesthesia was induced, and the patient was intubated. The abdomen was clipped, prepped, and draped in standard surgical fashion. An infraumbilical incision was made using a fresh 15 blade and carried down to the fascia with blunt dissection. The fascia was elevated and incised, and the abdomen entered visually using the open Naup technique without complication. A Anup trocar was inserted and the abdomen was insufflated 12 to 15 mmHg. Laparoscope was then inserted and the abdomen was inspected. No injury from initial trocar placement noted. Secondary trocars were placed under direct visualization beginning with a 12 mm trocar in the left lower quadrant and a 5 mm trocar in the suprapubic area at the hairline. No injury from secondary trocar placement was identified. Local anesthetic was used in all incisions throughout the procedure as necessary. We then evaluated the abdomen, and no abnormalities were noted in the right upper quadrant, left upper quadrant, left lower quadrant, or pelvis. In the right lower quadrant, the appendix was significantly dilated and inflamed and dangling from the anterior abdominal wall peritoneal lining. Laparoscopic graspers were used and cecum was identified as well as the tenia, which were evaluated down to the confluence. At the confluence of the tenia, the base of the appendix was identified and noted to be normal. A window was made at the base of the appendix using a Kaylee. Once this was completed, a laparoscopic linear stapler was used to divide the appendix at the base of the appendix without complication. The mid and distal appendix were significantly inflamed and dilated, but fortunately were not perforated. The appendix was then elevated and the mesentery of the appendix was identified. A laparoscopic linear stapler was used to divide the mesentery of the appendix without complication. Once this was completed, the appendix was placed in the endoscopic retrieval bag and removed from the abdomen using the infraumbilical port site. The abdomen was then inspected. The base of the appendix and the mesentery were inspected, and good hemostasis was noted without any complications. There was minimal serous fluid in the right lower quadrant and pelvis, which was evacuated with suction. At this time, we began the conclusion of our procedure. The secondary trocars were removed under direct visualization without complication. The umbilical trocar was removed, and the abdomen was allowed to desufflate. The 12 mm port site fascial incision was closed using a [id number] Vicryl suture. Remaining skin incisions were closed using 4-0 Monocryl subcuticular interrupted sutures after the wounds were irrigated appropriately. Steri-Strips and dressings were placed. The patient tolerated the procedure well, was extubated, and taken to the postanesthetic care unit in stable condition. Gigi Villarreal M.D. DR: HERIBERTO JOB#: [id number] CC: VEGA
--- NOTE | 2017-08-03 12:56 | Discharge Instructions ---
Discharge Instructions Discharge Instructions Follow up with: Dr. Villarreal in 1-2 weeks Diet: regular Resume Normal Activity?: Yes Activity: resume normal activities, other - no heavy lifting For Congestive Heart Failure Reminder Report to your physician any weight gain of 5 pounds or more in one week. Christiane Valenzuela M.D. Aug 03, 2017 12:56
[2017-08-03] MEDS ORDERED: D5 1/2NS 1000ml IV ONE (17:35)
[2017-08-03] MEDS ORDERED: Tubing IV Secondary IV ONE (17:35)
--- NOTE | 2017-08-04 03:00 | Consultation ---
DATE OF CONSULTATION: 08/03/2017 INTERNAL MEDICINE CONSULTATION CONSULTING PHYSICIAN: Alfred Hinds M.D. HISTORY OF PRESENT ILLNESS: The patient is a very pleasant gentleman, who presented to the emergency room with complaints of abdominal pain mostly right lower quadrant associated with nausea and vomiting. It started a few days ago. He denies any fevers or chills. He states his appetite has been poor. He denies any prior abdominal problems. PAST MEDICAL HISTORY: No history of diabetes, high blood pressure, or cholesterol. He does have a history of anxiety. MEDICATIONS: He is on no medications. SOCIAL HISTORY: Does not smoke. Does not drink any alcohol. Does not use any drugs. FAMILY HISTORY: Noncontributory. REVIEW OF SYSTEMS: A 12-point review of systems reviewed and negative except for above. PHYSICAL EXAMINATION: GENERAL: He is well developed, well nourished, casually seen postoperatively doing well. Admits to some postoperative pain. VITAL SIGNS: Revealed temperature 98.1, pulse 71, respirations 18, blood pressure 145/79, and pulse oximetry 96% on room air HEENT: Head is normocephalic and atraumatic. Pupils are equal and reactive to light. Extraocular muscles are intact. Eyes are anicteric. NECK: Supple. Full range of motion. No JVP. No bruits. LUNGS: Clear bilaterally. HEART: Regular rate and rhythm. ABDOMEN: Soft. Positive bowel sounds. Wound site is clean. No rebound or guarding. EXTREMITIES: No clubbing, cyanosis, or edema. NEUROLOGIC: Nonfocal. LABORATORY AND DIAGNOSTIC DATA: Labs revealed an initial white count was 14.3, hemoglobin 15.1, hematocrit 43.2, and platelet count of 203,000. This morning, his white count is 8.8. His chemistries revealed a sodium 139, potassium 3.5, chloride 103, bicarbonate 30, BUN 15, creatinine 1.0, and glucose 121, this morning glucose is 103. Lactic acid 1.1. Imaging study, CT of the abdomen and pelvis was done reveals findings compatible with acute appendicitis. No evidence of associated bowel obstruction, perforation, or abscess formation. There is diverticulosis without evidence of acute diverticulitis. ASSESSMENT AND PLAN: The patient is a 47-year-old gentleman, presented with acute appendicitis yesterday underwent surgery and doing well. Postoperatively, pain is relatively controlled. The patient will be started on a diet and if he tolerates his diet, he will be discharged. The patient was advised to follow up with me in the office next week. Thank you for allowing me to participate in the care of this patient. Alfred Hinds M.D. DR: ELIE JOB#: [id number] CC:
--- NOTE | 2017-08-06 08:50 | Discharge Summary ---
Discharge Summary Hospital Course Date of Admission Aug 02, 2017 at 14:32 Date of Discharge Aug 03, 2017 at 15:00 Admitting Diagnosis APPENDICITIS Reason for Hospitalization: urgent surgery for acute appy HPI Augustine Moe is a 47 year old male who was admitted on Aug 02, 2017 at 14:[address] A/P revealed findings c/w acute appy Patient was admitted for urgent surgery and further management Consultations Christiane Valenzuela MD -IM Aug 03, 2017 12:56 Alfred Hinds MD- Procedures s/p lap brennon 08/02/[address] Villarreal, [facility] Course s/p lap appy 08/02 course of recovery uneventful tolerated diet ambulated pain controlled, only incisional luna incisional site C/D/I ambulated IS at the bedside passed flatus abdomen soft, + BS voided freely surgery cleared for dc s scripts provided for Tyleniol #3 and Colace outpt fup with surgeon as advised in 1-2 weeks no lifting > 10Lbs x 4 weeks due to the rapid and unexpected improvement in patient's condition, the patient was dc in 1 day Discharge Condition Upon Discharge: stable Discharge Disposition Patient was discharged to Home (01) Discharge Diagnoses: Discharge Instructions Discharge Instructions Follow up with: Dr. Villarreal in 1-2 weeks Activity: resume normal activities, other - no heavy lifting Special Instructions I have been assigned to complete a D/C Summary on this account. I was not involved in the patient management Radha Ram NP (Vanchtein) Aug 06, 2017 08:50
--- NOTE | 2017-08-07 16:14 | History and Physical ---
History of Present Illness General Reason for Hospitalization: Abdominal Pain Present Illness HPI HPI History of Present Illness General Date patient seen: Aug 02, 2017 Chief Complaint: Abdominal Pain Reason for Consultation: acute appendicitis Present Illness HPI 47 year old otherwise healthy male presented to ED with complaints of worsening abdominal pain with associated nausea and emesis. As per patient, he was in his normal state of health until 10AM yesterday morning when he noted some mid abdominal discomfort. As day progressed pain worsened and became localized to RLQ. Pain associated with nausea and 4x non bloody emesis. Has not had appetite. No BM since. No prior symptoms. Allergies: Coded Allergies: No Known Allergies (Unverified , 08/02/17) Medication History Scheduled No Known Medications* (NKM - No Known Medications*), 0 ., (Reported) Patient History History Provided By: Patient Healthcare decision maker Resuscitation status Advanced Directive on File Past Medical/Surgical History Past Medical/Surgical History: (1) Appendicitis (2) Abdominal pain ROS Review of Systems Constitutional: Denies: no symptoms, see HPI, chills, sweats, fever, malaise, weakness, other Eye: Denies: no symptoms, see HPI, eye pain, blurred vision, tearing, double vision, nose pain, nose congestion, acuity changes, discharge, other ENT: Denies: no symptoms, see HPI, ear pain, ear discharge, nose pain, nose congestion, throat pain, throat swelling, mouth pain, hearing loss, nasal discharge, other Respiratory: Denies: no symptoms, see HPI, cough, orthopnea, shortness of breath, stridor, wheezing, SANCHEZ, sputum, other Cardiovascular: Denies: no symptoms, see HPI, chest pain, edema, palpitations, syncope, PND, other Gastrointestinal: Reports: abdominal pain, nausea, vomiting Genitourinary: Denies: no symptoms, see HPI, discharge, dysuria, frequency, hematuria, pain, retention, incontinence, urgency, vag bleed/dc, other Musculoskeletal: Denies: no symptoms, see HPI, back pain, gout, joint pain, joint swelling, muscle pain, muscle stiffness, other Skin: Denies: no symptoms, see HPI, rash, change in color, change in hair/nails , dryness, lesions, other Psychiatric: Denies: no symptoms, see HPI, prior hx, anxiety, depressed feelings, emotional problems, SI, HI, hallucinations, other Neurological: Denies: no symptoms, see HPI, headache, numbness, paresthesia, seizure, tingling, tremors, focal weakness, syncope, dizziness, other Endocrine: Denies: no symptoms, see HPI, excessive sweating, flushing, intolerance to temperature, increased thirst, increased urine, unexplained weight loss, other Hematologic/Lymphatic: Denies: no symptoms, see HPI, anemia, blood clots, easy bleeding, easy bruising, swollen glands, diathesis, other Physical Exam Physical Exam General Appearance: no apparent distress, alert Lines, tubes and drains: peripheral HEENT: normocephalic, atraumatic Neck: normal alignment, supple Respiratory/Chest: normal breath sounds, no respiratory distress, no accessory muscle use Cardiovascular/Chest: normal peripheral pulses, normal rate, regular rhythm Abdomen: soft, no organomegaly, no mass, guarding, rebound, tender, other - RLQ focal peritonitis with rebound and guarding Extremities: normal range of motion, non-tender, normal inspection Skin Exam: normal pigmentation Neurologic: alert, oriented x 3, responsive Last 24 Hour Vital Signs Date Time Temp Pulse Resp B/P (MAP) Pulse Ox O2 Delivery O2 Flow Rate FiO2 08/02/17 10:59 98.1 08/02/17 09:43 98.1 62 15 127/73 97 Room Air 08/02/17 09:36 98.1 71 18 145/79 96 Room Air Laboratory Tests Test 08/02/17 10:20 08/02/17 10:22 08/02/17 10:30 Lactic Acid Level 1.10 mmol/L (0.66-2.22) White Blood Count 14.3 K/UL (4.8-10.8) H Red Blood Count 5.24 M/UL (4.70-6.10) Hemoglobin 15.1 G/DL (14.2-18.0) Hematocrit 43.2 % (42.0-52.0) Mean Corpuscular Volume 82 FL (80-99) Mean Corpuscular Hemoglobin 28.9 PG (27.0-31.0) Mean Corpuscular Hemoglobin Concent 35.0 G/DL (32.0-36.0) Red Cell Distribution Width 11.3 % (11.6-14.8) L Platelet Count 203 K/UL (150-450) Mean Platelet Volume 8.7 FL (6.5-10.1) Neutrophils (%) (Auto) 77.8 % (45.0-75.0) H Lymphocytes (%) (Auto) 14.2 % (20.0-45.0) L Monocytes (%) (Auto) 7.5 % (1.0-10.0) Eosinophils (%) (Auto) 0.1 % (0.0-3.0) Basophils (%) (Auto) 0.5 % (0.0-2.0) Prothrombin Time 10.7 SEC (9.30-11.50) Prothromb Time International Ratio 1.0 (0.9-1.1) Sodium Level 139 MMOL/L (136-145) Potassium Level 3.5 MMOL/L (3.5-5.1) Chloride Level 103 MMOL/L (98-107) Carbon Dioxide Level 30 MMOL/L (21-32) Anion Gap 6 mmol/L (5-15) Blood Urea Nitrogen 15 mg/dL (7-18) Creatinine 1.0 MG/DL (0.55-1.30) Estimat Glomerular Filtration Rate > 60 mL/min (>60) Glucose Level 121 MG/DL (74-106) H Calcium Level 9.3 MG/DL (8.5-10.1) Total Bilirubin 0.8 MG/DL (0.2-1.0) Aspartate Amino Transf (AST/SGOT) 19 U/L (15-37) Alanine Aminotransferase (ALT/SGPT) 30 U/L (12-78) Alkaline Phosphatase 77 U/L (46-116) Total Protein 7.9 G/DL (6.4-8.2) Albumin 4.1 G/DL (3.4-5.0) Globulin 3.8 g/dL Albumin/Globulin Ratio 1.1 (1.0-2.7) Lipase 138 U/L (73-393) Urine Color Yellow Urine Appearance Clear Urine pH 6 (4.5-8.0) Urine Specific Pearl 1.020 (1.005-1.035) Urine Protein 2+ (NEGATIVE) H Urine Glucose (UA) Negative (NEGATIVE) Urine Ketones Negative (NEGATIVE) Urine Occult Blood 3+ (NEGATIVE) H Urine Nitrite Negative (NEGATIVE) Urine Bilirubin Negative (NEGATIVE) Urine Urobilinogen Normal MG/DL (0.0-1.0) Urine Leukocyte Esterase 1+ (NEGATIVE) H Urine RBC 5-10 /HPF (0 - 0) H Urine WBC 2-4 /HPF (0 - 0) Urine Squamous Epithelial Cells Occasional /LPF Urine Bacteria Occasional /HPF (NONE) Urine Mucus Moderate /LPF (NONE/OCC) H Height (Feet): 5 Height (Inches): 6.00 Weight (Pounds): 235 Medications Current Medications Medications (Trade) Dose Ordered Sig/Jorge Route PRN Reason Start Time Stop Time Status Last Admin Dose Admin Piperacillin Sod/ Tazobactam Sod 3.375 gm/Sodium Chloride 110 ml @ 220 mls/hr ONCE ONCE IVPB 08/02/17 12:15 08/02/17 12:44 08/02/17 12:37 Assessment/Plan Assessment/Plan Problem List: (1) Appendicitis Assessment & Plan: 47 year old male with acute appendicitis. Afebrile, HD stable, leukocytosis of 14k, exam with focal RLQ peritonitis, CT consistent with acute appy. -To OR for lap vs open appy -NPO -IV fluids -IV Abx -Consent ICD Codes: K37 - Unspecified appendicitis SNOMED: [id number] Qualifiers: Qualified Codes: K35.80 - Unspecified acute appendicitis Status: stable Allergies: Coded Allergies: No Known Allergies (Unverified , 08/02/17) Medication History Scheduled No Known Medications* (NKM - No Known Medications*), 0 ., (Reported) Patient History Healthcare decision maker Resuscitation status Full Code Advanced Directive on File Physical Exam Height (Feet): 5 Height (Inches): 6.00 Weight (Pounds): 235 Assessment/Plan Problem List: (1) Appendicitis Assessment & Plan: 47 year old male with acute appendicitis. Afebrile, HD stable, leukocytosis of 14k, exam with focal RLQ peritonitis, CT consistent with acute appy. -To OR for lap vs open appy -NPO -IV fluids -IV Abx -Consent ICD Codes: K37 - Unspecified appendicitis SNOMED: [id number] Qualifiers: Qualified Codes: K35.80 - Unspecified acute appendicitis Gigi Villarreal Aug 07, 2017 16:14
== END 2017-08-03 15:00 | disposition home or self-care (01) | DRG 343 ==
LOC: EMR 11:04 → SUR 12:16 → EDBEDREQSVC 12:36 → EDBEDREQ 12:44 → 3E 14:32
PROC: 0DTJ4ZZ Resection of Appendix, Percutaneous Endoscopic Approach (ICD-10-PCS; principal; 2017-08-02 13:00)
DX: K35.80 Unspecified acute appendicitis (principal); F41.9 Anxiety disorder, unspecified; K57.90 Diverticulosis of intestine, part unspecified, without perforation or abscess without bleeding
CPT/HCPCS: 36415; 74177; 80048; 80053; 81003; 83605; 83690; 85025; 85610; 86850; 86900; 86901; 94003; 94150; 99285; J2250; J2710